=== PATIENT | female | born 1975 | race Caucasian/White ===

== ENCOUNTER 2017-01-22 18:47 | Emergency (ER) | payer OTHER ==
[2017-01-22] MEDS ORDERED: 0.9 % SODIUM CHLORIDE 1,000 ML BAG IV ONE (19:33)
[2017-01-22 19:46] LABS: URINE APPEARANCE CLEAR; URINE BILIRUBIN NEGATIVE (NEGATIVE); URINE BLOOD MODERATE (NEGATIVE); URINE COLOR YELLOW; URINE GLUCOSE (UA) NEGATIVE (NEGATIVE); URINE KETONE 15 mg/dL (NEGATIVE); URINE LEUKOCYTE ESTERASE SMALL (NEGATIVE); URINE NITRITE NEGATIVE (NEGATIVE); URINE PROTEIN NEGATIVE (NEGATIVE); URINE UROBILINOGEN 0.2 E.U./dL (0.20 - 1.00)
[2017-01-22 19:48] LABS: BASO % 0.8 % (0-6); EOS % 0.5 % (0-6); GRAN % 66.4 % (47-80); HEMATOCRIT 43.3 % (35.0-47.0); HEMOGLOBIN 14.3 gm/dl (11.6-16.0); LYMPH % 24.4 % (16-45); MEAN CELL VOLUME 85.9 fl (81-97); MEAN CORPUSCULAR HEMOGLOBIN 28.4 pg (27-33); MONO % 7.9 % (0-9); PLATELET COUNT 428 K/uL (130-400); RED BLOOD COUNT 5.04 M/uL (3.80-5.40); RED CELL DISTRIBUTION WIDTH 14.4 % (11.5-14.5)
[2017-01-22 19:54] LABS: URINE EPITHELIAL CELLS 0 - 2 (FEW)
--- NOTE | 2017-01-22 19:56 | Emergency Department Record ---
History of Present Illness - General Chief complaint: Pain Stated complaint: LEFT RIB PAIN Time Seen by Provider: 01/22/17 19:24 Source: Patient Mode of Arrival: Ambulatory Limitations: No limitations - History of Present Illness Initial comments: pt has had 2 bouts of severe sharp pain in l flank. the first lasted 20 minutes and the second lasted 2 minutes. no sob, no n/v. MD Complaint: Other Onset/Timin -: Minutes(s) Location: Left, Other History of Same: No Radiation: None Severity scale (1-10): 2 Quality: Sharp Consistency: Constant Improves with: Nothing Worsens with: Nothing Associated Symptoms: Denies other symptoms - Related Data Home Medications Medication Instructions Recorded Confirmed Last Taken Norethindrone AC-Eth Estradiol 1 tab PO DAILY 01/22/17 01/22/17 Unknown [Junel 1.5 mg-30 Mcg Tablet] Previous Rx's Medication Instructions Recorded Hydrocodone/Acetaminophen [[place] 1 each PO Q6HR #14 tablet 01/22/17 5-325 Tablet] Sulfamethoxazole/Trimethoprim 1 each PO BID #14 tablet 01/22/17 [Bactrim Ds Tablet] Allergies Allergy/AdvReac Type Severity Reaction Status Date / Time No Known Drug Allergies Allergy Verified 01/22/17 18:52 Travel Screening - Travel/Exposure Within Last 30 Days Have you traveled within the last 30 days?: No Review of Systems Reviewed: No additional complaints except as noted below Constitutional: Reports: As per HPI. Denies: Chills, Fever, Malaise, Night sweats, Weakness, Weight change Eyes: Reports: As per HPI. Denies: Eye discharge, Eye pain, Photophobia, Vision change ENT: Reports: As per HPI. Denies: Congestion, Dental pain, Ear pain, Epistaxis , Hearing loss, Throat pain Respiratory: Reports: As per HPI. Denies: Cough, Dyspnea, Hemoptysis, Stridor, Wheezes Cardiovascular: Reports: As per HPI. Denies: Arrhythmia, Chest pain, Dyspnea on exertion, Edema, Murmurs, Orthopnea, Palpitations, Paroxysmal nocturnal dyspnea, Rheumatic Fever, Syncope Endocrine: Reports: As per HPI. Denies: Fatigue, Heat or cold intolerance, Polydipsia, Polyuria Gastrointestinal: Reports: As per HPI. Denies: Abdominal pain, Constipation, Diarrhea, Hematemesis, Hematochezia, Melena, Nausea, Vomiting Genitourinary: Reports: As per HPI. Denies: Abnormal menses, Discharge, Dyspareunia, Dysuria, Frequency, Hematuria, Incontinence, Retention, Urgency Musculoskeletal: Reports: As per HPI. Denies: Arthralgia, Back pain, Gout, Joint swelling, Myalgia, Neck pain Skin: Reports: As per HPI. Denies: Bruising, Change in color, Change in hair/ nails, Lesions, Pruritus, Rash Neurological: Reports: As per HPI. Denies: Abnormal gait, Confusion, Headache, Numbness, Paresthesias, Seizure, Tingling, Tremors, Vertigo, Weakness Psychiatric: Reports: As per HPI. Denies: Anxiety, Auditory hallucinations, Depression, Homicidal thoughts, Suicidal thoughts, Visual hallucinations Hematological/Lymphatic: Reports: As per HPI. Denies: Anemia, Blood Clots, Easy bleeding, Easy bruising, Swollen glands Past Medical History - SOCIAL HISTORY Smoking Status: Never smoker Alcohol Use: None Drug Use: None - RESPIRATORY Hx Respiratory Disorders: No - CARDIOVASCULAR Hx Cardio Disorders: No - NEURO Hx Neuro Disorders: Yes Comment:: MS - GI Hx GI Disorders: No - Hx Genitourinary Disorders: No - ENDOCRINE Hx Endocrine Disorders: No - MUSCULOSKELETAL Hx Musculoskeletal Disorders: No - PSYCH Hx Psych Problems: No - HEMATOLOGY/ONCOLOGY Hx Hematology/Oncology Disorders: No Family Medical History Any Significant Family History?: No Physical Exam - General General Appearance: Alert, Oriented x3, Cooperative, Mild distress - Head Head exam: Normal inspection - Eye Eye exam: Normal appearance, PERRL, EOMI Pupils: Normal accommodation - ENT ENT exam: Normal exam, Mucous membranes moist, Normal external ear exam, Normal orophraynx Ear exam: Normal external inspection. negative: External canal tenderness Nasal Exam: Normal inspection. negative: Discharge, Sinus tenderness Mouth exam: Normal external inspection, Tongue normal Teeth exam: Normal inspection. negative: Dental caries Throat exam: Normal inspection. negative: Tonsillar erythema, Tonsillar exudate - Neck Neck exam: Normal inspection, Full ROM. negative: Tenderness - Respiratory Respiratory exam: Normal lung sounds bilaterally. negative: Respiratory distress - Cardiovascular Cardiovascular Exam: Regular rate, Normal rhythm, Normal heart sounds - GI/Abdominal GI/Abdominal exam: Soft, Normal bowel sounds. negative: Tenderness - Rectal Rectal exam: Deferred - exam: Deferred - Extremities Extremities exam: Normal inspection, Full ROM, Normal capillary refill. negative: Tenderness - Back Back exam: Reports: Normal inspection, Full ROM. Denies: Muscle spasm, Rash noted, Tenderness - Neurological Neurological exam: Alert, CN II-XII intact, Normal gait, Oriented X3 - Psychiatric Psychiatric exam: Normal affect, Normal mood - Skin Skin exam: Dry, Intact, Normal color, Warm Course Vital Signs 01/22/17 18:48 Temperature 98.1 F Pulse Rate 79 Respiratory 20 Rate Blood Pressure 145/92 Pulse Ox 98 - Reevaluation(s) Reevaluation #1: 01/22/17 20:43 d/w dr mccray who pt will see in follow up. slight infection d/w dr mccray, stone is 2mm. Medical Decision Making - Lab Data Result diagrams: 01/22/17 19:40 01/22/17 19:40 Lab Results 01/22/17 01/22/17 Range/Units 19:40 19:40 WBC 12.0 (4.2-12.2) K/uL RBC 5.04 (3.80-5.40) M/uL Hgb 14.3 (11.6-16.0) gm/dl Hct 43.3 (35.0-47.0) % MCV 85.9 (81-97) fl MCH 28.4 (27-33) pg MCHC 33.0 (32-36) g/dl RDW 14.4 (11.5-14.5) % Plt Count 428 H (130-400) K/uL MPV 10.0 (7.4-10.4) fl Gran % 66.4 (47-80) % Lymphocytes % 24.4 (16-45) % Monocytes % 7.9 (0-9) % Eosinophils % 0.5 (0-6) % Basophils % 0.8 (0-6) % Urine Color Yellow Urine Appearance Clear Urine pH 6.0 (5.0-8.0) Ur Specific Tiger 1.025 (1.002-1.030) Urine Protein Negative (NEGATIVE) Urine Glucose (UA) Negative (NEGATIVE) Urine Ketones 15 mg/dl H (NEGATIVE) Urine Blood Moderate (NEGATIVE) Urine Nitrite Negative (NEGATIVE) Urine Bilirubin Negative (NEGATIVE) Urine Urobilinogen 0.2 (0.20 - 1.00) E.U./dL Ur Leukocyte Esterase Small H (NEGATIVE) Disposition Disposition: Discharge Clinical Impression: Renal lithiasis UTI (urinary tract infection) Qualifiers: Urinary tract infection type: acute cystitis Hematuria presence: with hematuria Qualified Code(s): N30.01 - Acute cystitis with hematuria Hydronephrosis Qualifiers: Hydronephrosis type: with renal calculous obstruction Qualified Code(s): N13.2 - Hydronephrosis with renal and ureteral calculous obstruction Disposition: Home, Self-Care Condition: (1) Good Instructions: Kidney Stones (ED), How to Strain Your Urine (ED), Urinary Tract Infection in Women (ED) Additional Instructions: follow up this week with dr rivera. return sooner if worse. push fluids. Prescriptions: Hydrocodone/Acetaminophen [[place] 5-325 Tablet] 1 each PO Q6HR #14 tablet Sulfamethoxazole/Trimethoprim [Bactrim Ds Tablet] 1 each PO BID #14 tablet Referrals: TIMMY RIVERA M.D. [MEDICAL DOCTOR] - Forms: Patient Portal Access Quality - Quality Measures Quality Measures: N/A - Blood Pressure Screening Blood Pressure Classification: Hypertensive Reading Systolic Measurement: 145 Diastolic Measurement: 92 Screening for High Blood Pressure: < Pre-Hypertensive BP, F/U Documented > [ [id number]] Pre-Hypertensive Follow-up Interventions: Follow-up with rescreen every year.
[2017-01-22 19:57] LABS: ANION GAP 13.4 (7-16); BLOOD UREA NITROGEN 10 mg/dL (7-17); CARBON DIOXIDE 24.6 mmol/L (22-30); CREATININE 0.9 mg/dL (0.52-1.04); EST GLOMERULAR FILTRATION RATE > 60 ml/min; GLUCOSE,RANDOM 100 mg/dL (70-110); LIPASE 230 U/L (23-300)
[2017-01-22] MEDS ORDERED: TMP/SMZ 160MG/800MG TAB PO ONE (20:34)
[2017-01-22] MEDS ORDERED: HYDROCODONE/APAP 5/325MG TABLET PO ONE (20:50)
--- NOTE | 2017-01-23 13:10 | CT SCAN REPORT ---
EXAM: ABDOMEN AND PELVIS CT WITHOUT CONTRAST HISTORY: ACUTE SHARP LEFT UPPER QUADRANT ABDOMINAL PAIN. TECHNIQUE: Contiguous axial images from the lung bases to the symphysis pubis were obtained without IV contrast. Comparison: Abdomen and pelvis CT 03/16/16. FINDINGS: The lung bases are clear. Evaluation of the solid abdominal visceral organs is compromised due to lack of IV contrast, however, the liver and spleen are unremarkable. Mild left hydronephrosis due to a partially obstructing 2 mm calculus at the left ureterovesical junction. Nonobstructing calculus mid left kidney measures 2 mm as well. Nonobstructing 1 mm calculus mid right kidney. The adrenals, pancreas, and gallbladder are normal. The visualized loops of small and large bowel are of normal caliber with no wall thickening. The appendix is not seen although there are no pericecal inflammatory changes. There is a small amount of fluid in the cul-de-sac. The uterus is present. No adenopathy. No lytic or blastic osseous lesion. IMPRESSION: 1. MILD LEFT HYDRONEPHROSIS DUE TO PARTIALLY OBSTRUCTING 2 MM CALCULUS AT THE LEFT URETEROVESICAL JUNCTION. 2. ADDITIONAL BILATERAL INTRARENAL CALCULI. 3. SMALL AMOUNT OF FREE PELVIC FLUID PRESUMABLY PHYSIOLOGIC. JOB NUMBER: [id number] MTDD
== END 2017-01-22 21:01 | disposition home or self-care (01) ==
LOC: ER 18:47
DX: N13.2 Hydronephrosis with renal and ureteral calculous obstruction (principal); N30.01 Acute cystitis with hematuria
CPT/HCPCS: 99284 ×2; 96360; 83690; 85025; 80048; 81001; 74176; J3490; J7030